=== PATIENT | male | born 1985 | race Caucasian/White ===

== ENCOUNTER 2022-01-10 21:41 | Emergency (ER) | payer OTHER ==
[~2022-01-10] VITALS: Ht 170.2 cm; Wt 70.3 kg
[2022-01-10] MEDS ORDERED: IBU800 MG PO (23:19)
== END 2022-01-10 23:53 | disposition home or self-care (01) ==
LOC: ER 21:41
DX: S43.402A Unspecified sprain of left shoulder joint, initial encounter (principal); F17.200 Nicotine dependence, unspecified, uncomplicated; Y04.2XXA Assault by strike against or bumped into by another person, initial encounter
CPT/HCPCS: 73030; A9270

== ENCOUNTER 2022-01-30 15:07 | Emergency (ER) | payer OTHER ==
[~2022-01-30] VITALS: Ht 170.2 cm; Wt 70.3 kg
[~2022-01-30 15:07] MED LIST: IBU800 MG PO
[2022-01-30] MEDS ORDERED: IBUP800 PO (17:31)
[2022-01-30] MEDS ORDERED: LIDO700A20 TOP (17:32)
[2022-01-30] MEDS ORDERED: Robaxin750 MG PO (17:52)
== END 2022-01-30 17:44 | disposition left against medical advice (07) ==
LOC: ER 15:07
DX: M12.512 Traumatic arthropathy, left shoulder (principal); Y09 Assault by unspecified means; F17.200 Nicotine dependence, unspecified, uncomplicated; Z88.0 Allergy status to penicillin; Z91.030 Bee allergy status; Z79.899 Other long term (current) drug therapy
CPT/HCPCS: J1885

== ENCOUNTER → 2022-05-21 | Outpatient (CLI) | payer OTHER ==
[~2022-05-21] MED LIST changes: +IBUP800 PO; +LIDO700A20 TOP; +Robaxin750 MG PO; +Ultram50 MG PO
[2022-05-23 11:08] LABS: HBSAG SCREEN Negative (Negative); HCV AB <0.1 (0.0-0.9); HEP A AB, IGM Negative (Negative); HEP B CORE AB, TOT Negative (Negative)
[2022-05-23 19:08] LABS: HIV AB/P24 AG SCREEN Non Reactive (Non Reactive)
[2022-05-24 23:10] LABS: CHLAMYDIA BY NAA Negative (Negative); GONOCOCCUS BY NAA Negative (Negative); TRICH VAG BY NAA Negative (Negative)
== END ==
LOC: LAB 16:42 → LAB SHORT 16:42
PROVIDERS: General Practice
DX: Z20.9 Contact with and (suspected) exposure to unspecified communicable disease (principal)
CPT/HCPCS: 86592; 86695; 86696; 86704; 86708; 86803; 87340; 87389; 87491; 87591; 87661